=== PATIENT | male | born 1950 | race Caucasian/White ===

== ENCOUNTER 2018-12-22 06:18 | Inpatient (IN) ==
--- NOTE | 2018-12-16 11:31 | Anesthesiology Consultation ---
Date of Service December 16, 2018 Assessment & Plan (1) Encounter for pre-operative examination: Nephro: 11/25/18: CKD likely due to chronic NSAID use, HTN, diabetes. Recent creatinine stable in the low 2's. Creatinine "improving" s/p NSAID discontinuation. "Based on Yu perioperative cardiac risk calculator, patient has perioperatively cardiac risk of 0.05% which is low. Patient can proceed with the knee replacement." Chart Review Chart Review: Acceptable Risk for Surgery (pending updated preop EKG) and Patient NOT seen in Pre Admission Testing History Surgery Operation Date: 12/22/18 10:40 Proposed Procedures p Left Knee Uni Compartment Versus - Willard Allen MD s Total Knee Replacement - Willard Allen MD Height/Weight Height: 5 ft 8 in Weight: 108.862 kg Allergies Allergy/AdvReac Type Severity Reaction Status Date / Time No Known Allergies Allergy Unknown Verified 12/14/18 15:30 Medications Home Medications Medication Instructions Recorded Confirmed Last Taken amoxicillin 2,000 mg PO UD PRN 09/15/18 12/14/18 Unknown atorvastatin 20 mg PO QAM 09/15/18 12/14/18 Unknown levothyroxine 175 mcg PO QAM 09/15/18 12/14/18 Unknown triamterene-hydrochlorothiazid 1 tab PO QAM 09/15/18 12/14/18 Unknown amlodipine 10 mg PO QAM 12/14/18 12/14/18 Unknown dulaglutide [Trulicity] 1.5 mg SUBCUT WK 12/14/18 12/14/18 Unknown metoprolol succinate 25 mg PO QAM 12/14/18 12/14/18 Unknown Past Medical History Medical History CKD (chronic kidney disease) creatinine stable in the low 2's (improving s/p NSAID discontinuation); nephro monitoring Diabetes mellitus, type 2 Hyperlipidemia Hypertension Hypothyroidism Osteoarthritis Pulmonary nodules "benign" Past Family History Family History Father Family history of diabetes mellitus Past Surgical History Surgical History History of cardiac cath 2011= NO STENTS History of colonoscopy History of esophagogastroduodenoscopy (EGD) History of tonsillectomy History of total knee replacement RIGHT History of wisdom tooth extraction Social History Smoking Status: Former smoker tobacco type: cigarettes Smoking cigarettes per day: QUIT 40+ YEARS AGO Do You Dip or Chew Tobacco: Yes Smoking End Date: 1971 Hx Alcohol Use: No Hx Substance Use: No substance use type: does not use Testing Laboratory Results 12/01/18 WBC 6.14 H/H 13.4/40.9 PLATELETS 220 SODIUM 136 POTASSIUM 3.8 CHLORIDE 104 CO2 30 BUN 37 CREATININE 2.22 GLUCOSE 130 PT 10.3 PTT 27.9 INR 1.0 Electrocardiogram Date: 12/12/17 SR with PACs at 75bpm. Cannot rule out anterior infarct. *Baseline artifact* *Subsequent DSE done 12/22/17* Stress Test Date: 12/22/17 Type: exercise DSE "normal" without inducible ischemia. 109% MPHR. No significant arrhythmias. LVEF 69%. Mild TR. Frequent PVC's. HR response to stress abnormal. + KIANA. Mildly increased cLV wall thickness. Other Testing Chest CT: 11/13/18: stable tiny pulmonary nodules (stable since 2016) and "therefore benign." No further follow-up is required per report.
--- NOTE | 2018-12-19 13:30 | History and Physical Report ---
DATE OF ADMISSION: 12/22/2018 CHIEF COMPLAINT: Left knee pain and discomfort. HISTORY OF PRESENT ILLNESS: The patient is a 68-year-old gentleman well known to me from previous right knee replacement done back in 2007. Over the past year or so, he has developed increased pain and discomfort in the medial side of his left knee. He has been through extensive conservative treatment including medicines and injections, which have helped him temporarily. He has taken some chance that his creatinine is elevated and he has had to stop. Symptoms localized in the medial side of his knee. The more he walks, the more it hurts. He has pain going up and down steps. He has nighttime pain. Very happy with his right knee and he would like to have his left knee replaced. PAST MEDICAL HISTORY: 1. Hypertension. 2. Elevated cholesterol. 3. Hypothyroidism. 4. Low back pain. 5. Obesity, BMI 36.5. 6. BPH. 7. Stage III kidney disease. PAST SURGICAL HISTORY: Includes: 1. Right knee surgery/replacement done 06/26/2007. 2. T and A. ALLERGIES: POLLEN. CURRENT MEDICATIONS: 1. Amlodipine 10 mg a day. 2. Atorvastatin 20 mg a day. 3. Trulicity 1.5 mg subcutaneously a week. 4. Levothyroxine 175 mcg a day. 5. Metoprolol 25 mg a day. 6. Unspecified med 1 tablet once a day. SOCIAL HISTORY: A 68-year-old gentleman. He is from [place]. Does not smoke. FAMILY HISTORY: Noncontributory. REVIEW OF HISTORY: Negative for diabetes, neurologic problem, vascular problem, bleeding disorders. No chest pain or shortness of breath. No history of DVT or PE. He has recently been diagnosed with stage III kidney disease. PHYSICAL EXAMINATION: GENERAL: Shows a pleasant, middle-aged male. Looks to be in pretty good health. HEENT: Benign. NECK: Supple, no lymphadenopathy. LUNGS: Clear to auscultation. HEART: Regular rate and rhythm. ABDOMEN: Soft, nontender, nondistended. EXTREMITIES: Grossly neurovascularly intact except as follows: Examination of the left knee reveals patient walks independently. He has got slight varus alignment to his knee. He is tender over the medial joint lines. Small knee effusion. Range of motion 0-125. No instability. ACL clinically appears intact. No pain with hip motion. X-RAYS: X-rays of the left knee reviewed. Shows advanced medial compartment arthritis. He has got near complete loss of medial joint space. A lateral compartment was pretty well preserved. ASSESSMENT: A 68-year-old gentleman now 11+ years out from a right knee replacement with a left medial side knee pain and advanced medial compartment arthritis. He has failed conservative treatment and would like to proceed with definitive/surgical treatment. PLAN: We talked about treatment options. I do think he is a pretty good candidate for partial knee replacement considering his arthritic pattern and his symptoms. We are going to proceed with partial knee replacement. If we get in there, it is too bad, we will do a full knee replacement. The risks and benefits of this procedure were explained to the patient including but not limited to DVT, PE, , infection, neurological injury, vascular injury, bleeding problem, pain, limited range of motion, stiffness, failure to relief symptoms, incomplete relief of symptoms, need for further surgery in future, fracture, leg length inequality, nerve palsy, persistent pain, dislocation, need for blood transfusion, etc. The patient understands and desires to proceed. Informed consent was obtained. He was seen by his trimmer tailer and cleared for surgery. We are going to limit his NSAIDs due to his kidney issue. He should be able to be discharged home with some form of outpatient therapy. GRACIELA
[~2018-12-22 06:18] MED LIST: ACETAMINOPHEN 500 MG TAB PO SCH; BUPIVACAINE LIPOSOME/PF 266 MG, BUPIVACAINE/EPINEPHRINE 50 ML, SODIUM CHLORIDE 0.9% 30 ... INFIL SCH; CEFAZOLIN 2000MG 2,000 MG/15 ML SYR IV SCH; FAMOTIDINE 20 MG TAB PO SCH; GABAPENTIN 300 MG CAP PO SCH; LR 500ML BOLUS, THEN 15ML/HR IV SCH; LR 60ML/HR IV SCH; METOCLOPRAMIDE HCL 10 MG TABLET PO SCH; SCOPOLAMINE 1.5 MG TDSY TD SCH; SODIUM CHLORIDE 0.9% 1000ML IV SCH
[2018-12-22] MEDS ORDERED: TRANEXAMIC ACID 1,000 MG **IV Intra-op IV SCH (06:30)
[2018-12-22] MEDS ORDERED: BUPIVACAINE 0.5 % 5 MG/1 ML PF 10ML VIAL ONE (06:34)
[2018-12-22] MEDS ORDERED: BUPIVACAINE 0.25% 30 ML VIAL ONE ×2 (06:35→08:50)
--- NOTE | 2018-12-22 06:53 | History & Physical Bridge Note ---
Date of Service December 22, 2018 History & Physical Bridge Note I have examined the patient, reviewed the History & Physical and in the interval since the performance of the History & Physical I have noted the following changes of clinical significance: no changes noted
[2018-12-22] MEDS ORDERED: LIDOCAINE HCL 2% 2 ML VIAL/AMP(20MG/ML) INFIL ONE (07:26)
[2018-12-22] MEDS ORDERED: PROPOFOL IV EMULSION 10 MG/ML 20 ML VIAL IV ONE (07:26)
[2018-12-22] MEDS ORDERED: fentaNYL citrate 100 MCG/2 ML VIAL ONE (07:26)
[2018-12-22] MEDS ORDERED: MIDAZOLAM HCL 1 MG/ML 2ML VIAL ONE ×2 (07:27→08:53)
[2018-12-22] MEDS ORDERED: SODIUM CHLORIDE 0.9% PF 50 ML VIAL ONE (08:49)
[2018-12-22] MEDS ORDERED: BUPIVACAINE LIPOSOME 1.3% 266 MG/20 ML VIAL ONE (08:49)
[2018-12-22] MEDS ORDERED: BACITRACIN INJ 50,000 UNIT VIAL ONE (08:50)
[2018-12-22] MEDS ORDERED: EPINEPHrine INJ 1 MG/ML AMP ONE (08:51)
[2018-12-22] MEDS ORDERED: ONDANSETRON INJ 2 MG/ML 2 ML VIAL IV PRN ×2 (08:55→11:40)
[2018-12-22] MEDS ORDERED: fentaNYL citrate 100 MCG/2 ML VIAL IV PRN (08:55)
[2018-12-22] MEDS ORDERED: ATROPINE SULFATE 0.1 MG/ML 10ML SYR IV PRN (08:55)
[2018-12-22] MEDS ORDERED: ePHEDrine sulfate 50 MG/ML AMP IV PRN (08:55)
--- NOTE | 2018-12-22 10:35 | Post Operative Brief Note ---
PG Immediate Post Op with CF Date of Surgery December 22, 2018 Pre & Post Diagnosis Operation Date: 12/22/18 08:50 Pre-Op Diagnosis: Left Knee Advanced Medial Compartment Arthritis Post-Op Diagnosis: Left Knee Tricompartment Degenerative Joint Disease Procedure Operation Date: 12/22/18 08:50 Actual Procedures p Left Knee Total Arthroplasty - Willard Allen MD Surgeon Willard Allen MD Medical And Scientific Illustrator Dave, PAC Estimated Blood Loss 50 Findings Consistent with Post-Op Diagnosis Fluids 700 cc Specimens Specimen Description: A. Left Knee Bone and Tissue Drains Zapata Catheter (16 [place]uran Zapata catheter inserted by Dia Morales RN without difficulty. Clear yellow urine obtained, Anesthesia to monitor) Anesthesia Type Spinal MAC Complications none Disposition Accompanied Patient To Recovery: No Disposition: Recovery Room
--- NOTE | 2018-12-22 10:57 | XRay Report ---
XR knee LT 2V routine CLINICAL HISTORY: Postoperative evaluation. COMPARISON: Left knee radiographs September 10, 2018. FINDINGS: Alignment of the total left knee arthroplasty is anatomic. There is no fracture or unexpec mercy radiopaque foreign body. There are skin kecia. IMPRESSION: Expected findings following total left knee arthroplasty. Electronically signed by: Meng Pickens M.D. 12/22/2018 10:56 AM
--- NOTE | 2018-12-22 11:03 | Operative Report ---
DATE OF OPERATION: 12/22/2018 SURGEON: Willard Allen MD WIRE THREADER: CHIDI Flores PREOPERATIVE DIAGNOSIS: Left knee medial compartment degenerative joint disease. POSTOPERATIVE DIAGNOSES: Left knee tricompartment degenerative joint disease. PROCEDURE PERFORMED: Left cemented posterior stabilized total knee arthroplasty. COMPLICATIONS: None. ESTIMATED BLOOD LOSS: 50 mL. FLUID REPLACEMENT: 1700 mL crystalloid fluid replacement. TOURNIQUET TIME: 65 minutes at 300 mmHg. ANESTHESIA: Spinal with adductor canal block. DRAINS: None. SPECIMENS: Left knee sent for pathology. OPERATIVE INDICATIONS: The patient is a 68-year-old gentleman who is well known to me from previous right knee replacement done a little over 11 years ago. His right knee has done well. Over the past several years, he has developed increased pain and discomfort in his left knee. He has been through extensive conservative treatment including various medicines as well as injections. Unfortunately, with his medicine intake, he started to damage his kidneys and had to stop all NSAIDs. His pain has progressed. X-rays revealed medial compartment arthritis and the plan was to proceed with partial knee replacement. Symptoms were mostly on the medial side. OPERATIVE FINDINGS: Operative findings revealed advanced left knee DJD. He did have grade 4 changes in the medial femoral condyle and medial tibial plateau. Not much of bony eburnation. He did have a varus aligned knee. He did have a focal area of grade 4 changes in the central aspect of the lateral femoral condyle about the size of a dime and he has some grade 3 changes of patellofemoral joint. In light of these findings, I proceeded with a left knee replacement. OPERATIVE PROCEDURE: The patient was taken to the operating room, identified and placed on the operating table in supine position. All contact areas were appropriately padded. IV antibiotics were provided by anesthesia team. A spinal anesthetic and adductor canal block had been provided in the holding area. Zapata catheter was placed in sterile fashion. Left thigh tourniquet was then placed and left lower extremity was then prepped and draped in usual sterile fashion. Left leg was elevated and exsanguinated with an Esmarch and tourniquet was placed at 300 mmHg. An anterior approach to the left knee was then performed through a longitudinal incision beginning at the superior pole of the patella and extending just medial to the tibial tubercle. Sharp dissection was carried through subcutaneous tissue down to the level of the extensor mechanism. Medial parapatellar arthrotomy incision was made. I resected the fat pad. Some slight subperiosteal dissection was carried out medially. I then examined the lateral compartment and there was a focal area of grade 4 change of full thickness cartilage change in the central aspect of the lateral femoral condyle about the size of a dime. In light of this, I elected to proceed with total knee replacement. The total knee equipment was opened up. The knee incision was then extended up over the quad. The medial parapatellar arthrotomy incision was extended proximally. A more extensive subperiosteal dissection was carried out medially. Lateral patellofemoral ligament was released. The patella was subluxated laterally and the knee was flexed. The osteophytes were taken off the distal femur. The ACL and PCL were then released from distal femur and the tibia subluxated anteriorly. The external tibial alignment jig was then placed in the anterior face of the tibia and adjusted 14 mm medially. Proximal tibial cut was made to remove about a millimeter or 2 of bone from the most deficient aspect of the medial tibial plateau. Tibia was then sized to a size 75. Attention was then drawn to the femur. The distal femur was entered with a sharp drill bit. Intramedullary canal was suctioned. A left 6-degree valgus cutting guide was placed. Distal femoral cutting block was pinned in place. Distal femoral cut was made to take an additional 3 mm of bone off the distal femur. Femur was then sized to a size 67.5. We did downsize this about half a size. The AP cutting block was pinned parallel to the epicondylar axis, which was 5 degrees of external rotation. The anterior cut, anterior chamfer cut, posterior cut, posterior chamfer cuts were made. Box cutting guide was placed and adjusted slightly lateral and the box cut was made. The knee was flexed. The remnants of the medial and lateral menisci were excised. The osteophytes were taken off the posterior aspect of the femur. A trial femoral component was placed. Tibial tray was pinned in maximum external rotation and the drill and stem punch were used to create defect in proximal tibia for the tibial tray. The knee was then trialed and the 10 mm insert fit most appropriately. Attention was then drawn to the patella. The patella thickness measured 23 mm in thickness, it was cut down to 14. It was sized to a size 31 patella. Lug holes were drilled for 31 patella. Lateral osteophyte was removed. Patella button was placed. Knee was taken through range of motion and the patella tracked nicely with no thumbs test. Attention was then drawn toward placement of permanent components. All trial components were removed. A bone plug was placed in the distal femur to limit blood loss. A double batch of Palacos G cement was mixed. A Biomet Vanguard size 67.5 left posterior stabilized femoral component, size 75 tibial tray, 10 mm posterior stabilized polyethylene insert, and a 31 x 8 all poly patella then cemented in place. Knee was brought down into full extension until cement hardened. A final cement check was then performed. Pericapsular tissues were injected with a total of 100 mL of combination of 20 mL Exparel, 30 mL of normal saline, 50 mL of 0.25% Marcaine with epinephrine. The patient did receive 1 gram of tranexamic acid. The tourniquet was then let down for final tourniquet time of 65 minutes. Hemostasis was assured using electrocautery. Extensor mechanism was then closed with combination of #1 PDS suture and #1 Vicryl suture in a [id number] fashion. Extensor mechanism was checked and found to be intact. The subcutaneous tissue was then closed with #2 Dexon suture in a buried interrupted fashion. Skin was closed with skin kecia. Leg was then cleaned, dried and a sterile dressing of Xeroform, 4 x 4, sterile cast padding and Nicolás bandage were applied. The patient then transferred to the recovery room in stable condition. The patient tolerated the procedure well with no complications. All needle and sponge counts were correct at the end of the operation. I attest to the content of the Intraoperative Record and any orders documented therein. Any exception s are noted below.
--- NOTE | 2018-12-22 11:20 | Anesthesiology Progress Note ---
Date of Service December 22, 2018 Anesthesia Post Procedure Vital Signs Vital Signs: Temp Pulse Pulse Resp BP Pulse Ox 12/22/18 11:10 36.4 C L 57 L 14 114/70 98 12/22/18 11:00 58 L 19 105/64 98 12/22/18 10:50 63 15 114/68 98 12/22/18 10:41 36.4 C L 63 15 112/67 97 12/22/18 07:13 36.8 C 67 20 154/95 H 94 Transfer of Care Handoff Completed per policy Notes Mental Status: alert / awake / arousable and participated in evaluation Nausea / Vomiting: adequately controlled Pain: adequately controlled Airway Patency, RR, SpO2: stable & adequate BP & HR: stable & adequate Hydration State: stable & adequate Neuraxial Anesthesia: was administered and sensory block is resolving Anesthetic Complications: no major complications apparent and Pt Satisfied with anesthetic care
[2018-12-22] MEDS ORDERED: HYDROmorphone INJ 0.5 MG/0.5 ML SYR IV PRN (11:40)
[2018-12-22] MEDS ORDERED: NO NSAIDS SCH (11:40)
[2018-12-22] MEDS ORDERED: MAGNESIUM HYDROXIDE SUSP 30 ML UDC PO PRN (11:40)
[2018-12-22] MEDS ORDERED: METOCLOPRAMIDE HCL INJ 5 MG/ML 2 ML VIAL IV PRN (11:40)
[2018-12-22] MEDS ORDERED: NALOXONE HCL 0.4 MG/1 ML VIAL/CARP IV PRN (11:40)
[2018-12-22] MEDS ORDERED: TAMSULOSIN HCL 0.4 MG CAP PO PRN (11:40)
[2018-12-22] MEDS ORDERED: BISACODYL 10 MG SUPP PR PRN (11:40)
[2018-12-22] MEDS ORDERED: ALUMINUM/MAGNESIUM SUSP 30 ML UDC PO PRN (11:40)
[2018-12-22] MEDS ORDERED: OXYCODONE HCL IR 5 MG TAB (IMMEDIATE RELEASE) ONE (12:20)
[2018-12-22] MEDS: OXYCODONE HCL IR 5 MG TAB (IMMEDIATE RELEASE) PO PRN ×3 (12:24→21:50)
[2018-12-22] MEDS ORDERED: CARBOHYDRATES FOR HYPOGLYCEMIA PO PRN (15:24)
[2018-12-22] MEDS ORDERED: GLUCOSE 40% GEL 15 GM TUBE PO PRN (15:24)
[2018-12-22] MEDS ORDERED: DEXTROSE 50% 50 ML SYRINGE IV PRN (15:24)
[2018-12-22] MEDS ORDERED: GLUCOSE 10 TABS/TUBE PO PRN (15:24)
[2018-12-22] MEDS ORDERED: GLUCAGON FOR INJ 1 MG VIAL SQ PRN (15:24)
[2018-12-22] MEDS ORDERED: PHARMACY GLYCEMIC MGMT CONSULT PRN (15:28)
[2018-12-22] MEDS: ACETAMINOPHEN 500 MG TAB PO SCH ×2 (15:29→21:50)
[2018-12-22] MEDS: CHECK SCOPOLAMINE PATCH PLACEMENT SCH (15:30)
[2018-12-22] MEDS: SODIUM CHLORIDE 0.9% 1000ML 1,000 ML IV SCH (15:31)
[2018-12-22] MEDS: [UNRECOGNIZED DRUG - OTHER] SCH (15:46)
[2018-12-22] MEDS ORDERED: TRANEXAMIC ACID 1,000 MG in 0.9 % SODIUM CHLORIDE 100 ML IV SCH (16:37)
[2018-12-22] MEDS: ASCORBIC ACID 500 MG TAB PO SCH (17:14)
[2018-12-22] MEDS: CEFAZOLIN 2000MG 2,000 MG/15 ML SYR IV SCH (17:14)
[2018-12-22] MEDS: FERROUS GLUCONATE 324 MG TAB PO SCH (17:15)
[2018-12-22] MEDS: INSULIN ASPART 100 UNITS/ML 3 ML PEN SC SCH ×2 (18:00→21:46)
[2018-12-22] MEDS ORDERED: INSULIN ASPART 100 UNITS/ML 3 ML PEN SC SCH (18:00)
[2018-12-22] MEDS: TAPENTADOL HCL ER 50 MG TABCR PO SCH (20:10)
[2018-12-22] MEDS: SENNA 8.6 MG TAB PO SCH (20:11)
[2018-12-22] MEDS: DOCUSATE SODIUM 100 MG CAP PO SCH (20:11)
[2018-12-22] MEDS: ASPIRIN 81 MG ECTAB PO SCH (20:12)
[2018-12-23] MEDS: CHECK SCOPOLAMINE PATCH PLACEMENT SCH (00:01)
[2018-12-23] MEDS: CEFAZOLIN 2000MG 2,000 MG/15 ML SYR IV SCH (00:01)
[2018-12-23] MEDS: [UNRECOGNIZED DRUG - OTHER] SCH ×4 (00:30→23:05)
[2018-12-23] MEDS: SODIUM CHLORIDE 0.9% 1000ML 1,000 ML IV SCH (00:55)
[2018-12-23] MEDS: LEVOTHYROXINE SODIUM 175 MCG TABLET PO SCH (05:34)
[2018-12-23] MEDS: ACETAMINOPHEN 500 MG TAB PO SCH ×3 (05:34→21:11)
[2018-12-23 06:20] LABS: Hematocrit (blood only) 35.7 % (42-52); Hemoglobin 12.1 g/dL (14.0-18.0); Mean Corpuscular Hgb Conc 33.9 g/dL (32-36); Mean Corpuscular Volume 93.5 fL (80-100); Mean Platelet Volume 10.8 fL (7.4-10.4); Platelet Count 189 K/uL (130-400); RDW Standard Deviation 44.8 fL (36.4-46.3); Red Blood Count 3.82 M/uL (4.7-6.1); White Blood Count 9.25 K/uL (4.8-10.8)
[2018-12-23 06:36] LABS: Estimated Average Glucose 134 mg/dl; Hemoglobin A1C 6.3 % (4.5-5.6)
[2018-12-23 06:58] LABS: BUN Creatinine Ratio 15.9 (10-20); Calcium 8.2 mg/dl (8.5-10.1); Creatinine Clr Calc Pharmacy 43.6 ml/min; Est GFR (African American) 39.6; Est GFR (Non-African American) 34.2; Potassium 3.8 mmol/L (3.5-5.1)
--- NOTE | 2018-12-23 08:31 | Anesthesiology Progress Note ---
Date of Service December 23, 2018 Anesthesia Post Procedure Vital Signs Vital Signs: Temp Pulse Pulse Resp BP Pulse Ox 12/23/18 07:42 36.7 C 60 16 139/74 96 12/23/18 03:11 36.8 C 75 16 130/72 95 12/22/18 23:29 36.9 C 66 16 117/69 93 12/22/18 19:37 36.4 C L 64 17 136/77 96 12/22/18 14:36 36.5 C 58 L 16 109/64 97 12/22/18 13:30 36.7 C 59 L 16 110/69 94 12/22/18 12:42 73 16 119/74 97 12/22/18 12:11 36.7 C 59 L 16 122/68 100 12/22/18 11:40 36.7 C 60 16 111/73 98 12/22/18 11:20 60 20 116/73 96 12/22/18 11:10 36.4 C L 57 L 14 114/70 98 12/22/18 11:00 58 L 19 105/64 98 12/22/18 10:50 63 15 114/68 98 12/22/18 10:41 36.4 C L 63 15 112/67 97 Pain Intensity Left Knee: Pain Intensity: 4 Notes Mental Status: alert / awake / arousable and participated in evaluation Patient Amnestic to Procedure: Yes Nausea / Vomiting: adequately controlled Pain: adequately controlled Airway Patency, RR, SpO2: stable & adequate BP & HR: stable & adequate Hydration State: stable & adequate Neuraxial Anesthesia: was administered and sensory block resolved Anesthetic Complications: no major complications apparent and Pt Satisfied with anesthetic care
--- NOTE | 2018-12-23 08:34 | Progress Note ---
DATE: 12/23/2018 SUBJECTIVE: A 68-year-old gentleman postop day 1 from a left full knee replacement. He is doing well. He has had quite a bit of pain intermittently, but responded to the pain medicines and doing well this morning. No chest pain or shortness of breath. Not feeling dizzy or lightheaded. OBJECTIVE: VITAL SIGNS: Temperature 36.7. Vital signs stable. GENERAL: Physical examination shows a pleasant, middle-aged male. He is sitting up in bed and eating breakfast. Looks comfortable. EXTREMITIES: Examination of the left leg reveals the dressing to be clean, dry, and intact. He can dorsiflex and plantarflex his foot appropriately. He is neurologically intact. LABORATORY DATA: Hemoglobin 12.1. Hematocrit 35.7. Electrolytes are stable. Creatinine is actually improved from previously. ASSESSMENT: A 68-year-old gentleman with some underlying chronic renal insufficiency, postop day 1 from a left knee replacement, doing well. His pain is controlled. He is neurologically intact. Renal function is stable. PLAN: 1. DVT prophylaxis including thigh-high TEDs, SCDs, and aspirin twice a day for the next 4-6 weeks. 2. PT/OT. Weight bear as tolerated. Left total knee protocol. 3. Pain control, doing pretty well with current pain medicines. We will have to hold all NSAIDs due to his renal dysfunction. 4. Disposition: Plan to discharge to home with some home health once adequately recovered.
[2018-12-23] MEDS: INSULIN ASPART 100 UNITS/ML 3 ML PEN SC SCH ×4 (09:04→21:14)
[2018-12-23] MEDS: AMLODIPINE BESYLATE 5 MG TAB PO SCH (09:06)
[2018-12-23] MEDS: ATORVASTATIN 20 MG TAB PO SCH (09:06)
[2018-12-23] MEDS: MULTIVITAMIN TAB PO SCH (09:06)
[2018-12-23] MEDS: TAPENTADOL HCL ER 50 MG TABCR PO SCH ×2 (09:06→20:44)
[2018-12-23] MEDS: TRIAMTERENE/HCTZ 37.5/25MG TAB PO SCH (09:06)
[2018-12-23] MEDS: FERROUS GLUCONATE 324 MG TAB PO SCH ×2 (09:06→16:29)
[2018-12-23] MEDS: ASPIRIN 81 MG ECTAB PO SCH ×2 (09:06→20:44)
[2018-12-23] MEDS: ASCORBIC ACID 500 MG TAB PO SCH ×2 (09:06→16:29)
[2018-12-23] MEDS: DOCUSATE SODIUM 100 MG CAP PO SCH ×2 (09:06→20:44)
[2018-12-23] MEDS: METOPROLOL SUCC 25MG EXT REL TAB PO SCH (09:07)
[2018-12-23] MEDS: OXYCODONE HCL IR 5 MG TAB (IMMEDIATE RELEASE) PO PRN ×2 (09:15→14:24)
[2018-12-23] MEDS: SENNA 8.6 MG TAB PO SCH (20:44)
[2018-12-24] MEDS: ACETAMINOPHEN 500 MG TAB PO SCH (06:06)
[2018-12-24] MEDS: LEVOTHYROXINE SODIUM 175 MCG TABLET PO SCH (06:27)
[2018-12-24] MEDS: [UNRECOGNIZED DRUG - OTHER] SCH (07:36)
[2018-12-24] MEDS: MULTIVITAMIN TAB PO SCH (08:42)
[2018-12-24] MEDS: AMLODIPINE BESYLATE 5 MG TAB PO SCH (08:42)
[2018-12-24] MEDS: ASPIRIN 81 MG ECTAB PO SCH (08:42)
[2018-12-24] MEDS: TRIAMTERENE/HCTZ 37.5/25MG TAB PO SCH (08:42)
[2018-12-24] MEDS: FERROUS GLUCONATE 324 MG TAB PO SCH (08:42)
[2018-12-24] MEDS: ASCORBIC ACID 500 MG TAB PO SCH (08:42)
[2018-12-24] MEDS: ATORVASTATIN 20 MG TAB PO SCH (08:42)
[2018-12-24] MEDS: DOCUSATE SODIUM 100 MG CAP PO SCH (08:42)
[2018-12-24] MEDS: METOPROLOL SUCC 25MG EXT REL TAB PO SCH (08:44)
[2018-12-24] MEDS: INSULIN ASPART 100 UNITS/ML 3 ML PEN SC SCH (08:45)
[2018-12-24] MEDS: TAPENTADOL HCL ER 50 MG TABCR PO SCH (08:48)
--- NOTE | 2018-12-24 08:57 | Progress Note ---
DATE: 12/24/2018 SUBJECTIVE: A 68-year-old gentleman postop day 2 from a left knee replacement. He is doing well. Pain seems to be a bit better today. No chest pain or shortness of breath. Not feeling dizzy or lightheaded. Doing okay with pain meds. OBJECTIVE: VITAL SIGNS: Temperature 36.7. Vital signs stable. GENERAL: Physical examination shows a pleasant, middle-aged male. He is sitting up in bed, looks comfortable. EXTREMITIES: Examination of the left leg reveals incision to be clean, dry and intact. Really not much swelling. His calf is soft and supple. He can dorsiflex and plantarflex his foot appropriately. ASSESSMENT: A 68-year-old gentleman postop day 2 from left knee replacement, doing pretty well. Pain is controlled. He is neurologically intact. PLAN: 1. DVT prophylaxis including thigh-high TEDs, SCDs, and aspirin twice a day. 2. PT/OT. Weight bear as tolerated. Left total knee protocol. 3. Pain control, doing well with current pain regimen. 4. Disposition: Plan to discharge to home with some home health later today.
[2018-12-24] MEDS: OXYCODONE HCL IR 5 MG TAB (IMMEDIATE RELEASE) PO PRN (10:18)
--- NOTE | 2018-12-28 22:04 | Discharge Summary ---
ADMITTING PHYSICIAN AND SURGEON: Dr. Willard Allen ADMITTING DIAGNOSIS: Left knee medial compartment degenerative joint disease. PROCEDURE PERFORMED: Left total knee arthroplasty. SECONDARY DIAGNOSES: Hypertension, elevated cholesterol, hypothyroidism, low back pain, obesity, BPH, stage III kidney disease. CONSULTS: None obtained. HOSPITAL COURSE: The patient was admitted on 12/22/2018, underwent total knee arthroplasty, tolerated the procedure well. There were no complications. He was transferred to the PACU postoperatively and later to the orthopedic floor for further care. He was given Ancef for antibiotic prophylaxis, ANA MARIA stockings, SCDs and aspirin for DVT prophylaxis. Hemoglobin, hematocrit and vital signs were monitored during his hospital stay and remained stable, did not require any blood transfusions. There were no complications. On postoperative day 2, he was tolerating a diabetic diet. Pain was controlled with oral pain medicine. He was participating in physical therapy. Postop day #2, he was discharged home. He was given printed discharge instructions as well as new prescriptions for extra strength Tylenol, aspirin and oxycodone. Continue home medicines. Continue physical therapy, weightbearing as tolerated, ANA MARIA stockings. Follow up approximately 2 weeks postop or sooner if there are any problems or concerns.
== END 2018-12-24 11:35 | disposition home or self-care (01) | DRG 470 ==
LOC: ASU 06:18 → 3E 10:39

== ENCOUNTER 2021-08-29 05:04 | Observation (INO) ==
--- NOTE | 2021-08-01 13:15 | PAT Medication Instructions ---
Medication Instructions Date of Service August 01, 2021 Home Medications amoxicillin 500 mg capsule 2,000 mg PO UD PRN atorvastatin 20 mg tablet 20 mg PO QAM triamterene 75 mg-hydrochlorothiazide 50 mg tablet 1 tab PO QAM amlodipine 10 mg tablet 10 mg PO QAM Zinc 30 mg PO QAM dulaglutide 3 mg/0.5 mL subcutaneous pen injector (Trulicity) 3 mg SUBCUT WK empagliflozin 10 mg tablet (Jardiance) 10 mg PO QAM levothyroxine 150 mcg tablet 150 mcg PO QAM magnesium oxide-magnesium amino acid chelate 300 mg capsule (Magnesium (oxide/AA chelate)) 1 cap PO QAM Continue as directed amoxicillin 500 mg capsule 2,000 mg PO UD PRN(if needed) dulaglutide 3 mg/0.5 mL subcutaneous pen injector (Trulicity) 3 mg SUBCUT WK (not day of surgery) DO NOT take the morning of surgery triamterene 75 mg-hydrochlorothiazide 50 mg tablet 1 tab PO QAM Zinc 30 mg PO QAM empagliflozin 10 mg tablet (Jardiance) 10 mg PO QAM magnesium oxide-magnesium amino acid chelate 300 mg capsule (Magnesium (oxide/AA chelate)) 1 cap PO QAM Take morning of surgery With a small sip of water, OTHERWISE NOTHING TO EAT OR DRINK AFTER MIDNIGHT: atorvastatin 20 mg tablet 20 mg PO QAM amlodipine 10 mg tablet 10 mg PO QAM levothyroxine 150 mcg tablet 150 mcg PO QAM Other Notes If you have any questions please call us at [phone] or [phone] or [phone] or [phone]
--- NOTE | 2021-08-06 15:07 | Anesthesiology Consultation ---
Date of Service August 06, 2021 Assessment & Plan (1) Encounter for pre-operative examination: - check BSG am DOS. - elevated A1c 8.8%. Kavita at surgeon's office made aware. - Case discussed in detail with Dr. Joaquin including h/o pulmonary h ypertension, no recent echocardiogram. He advised patient is acceptable risk to proceed with surgery without additional evaluation or testing from his standpoint, to surgeon's discretion regarding elevated A1c. Kavita at surgeon's office confirmed he is staying overnight, is not outpatient joint. - PCP office visit 07/09/2021 [facility]: "...History of pe-stable. History of pulm [id number]-[id number] followed. History of diabetes...History of ckd-being followed. History of increased lipids...History of htn-on a medication. History of hyperparathyroidism-being followed. History of hypothyroidism..." 6 month follow-up advised. - nephrology office visit 06/06/2021 [facility]: "...hypertension, hyperlipidemia, hypothyroidism and CKD stage 3 with the previous baseline of 1.3 but for the past 2 months creatinine has been around 2.7-2.9. Renal ultrasound in September showed 11.9 cm right kidney and 12.1 cm left kidney with no hydronephrosis or kidney stones...He had a dobutamine stress test in December 2017 which was negative for ischemia and EF of 69%...chronic arthritis of the knees and was taking ibuprofen 6 tab daily. He was planned for left knee replacement but this was canceled after finding rise in creatinine...CKD stage 3 likely due to chronic NSAID use, hypertension and diabetes. Recent creatinine of 1.6 which is his baseline. Electrolytes are stable and no signs of volume overload...moderate risk for progression to ESRD. Main problem today's hyperglycemia with recent A1c of 9.9. Patient will benefit from an SGLT 2 inhibitor. Discussed case with [facility] pharmacy. Repeat BMP in 6 months with PCP...Blood pressure is controlled on current regimen. No changes today. He will continue monitor blood pressure at home. Renal osteodystrophy. Patient likely has a component of primary hyperparathyroidism. PTH is above target. Vitamin-D is acceptable. Calcium is at target. Patient knows to avoid calcium supplements. No other changes. Will repeat PTH and vitamin-D with the next blood test..." - discharge summary 03/04/2021-03/06/2021 S: "...worsening shortness of breath and hypoxia SPO2 84% on RA...placed on 3 L NC, SpO2 stable around 93-97%...sick for about 10 days with intermittent fever...productive cough, poor appetite, nausea, dyspnea...CT evidence of covid pneumonia...diarrhea with azithromycin...admitted for acute hypoxic respiratory failure, exertional hypoxia from covid 19 pneumonia...started him on supplemental oxygen, dexamethasone and remdesivir...VQ scan plus LE doppler to rule out PE/DVT. Corrected his low sodium...V/Q scan was showing possibility of PE and LE doppler showed B/L DVT...on heparin for during hospital stay...ambulatory pulse ox was showing decent saturation on RA...deemed stable for discharge..." - pulmonology office visit 04/20/2018 [facility]: "...remains fairly stable and continues to go about his usual activities at his own pace. He still has occasional cough but mostly unproductive...PULMONARY HYPERTENSION WHO CLASSIFICATION 1 (Patient with pulmonary hypertension but without resulting limitations of physical activity...Patient's prior CT scan of the chest showed evidence of small pulmonary nodular densities...follow-up and patient will be scheduled for repeat CT scan of the chest prior to next visit. Plan of care was discussed with the patient and he verbalized understanding...pulmonary hypertension: Patient is fairly stable. Decrease salt intake was encouraged." Pt advised to f/u with pulmonology office, per [facility] records he did not return as advised in 2020. - COVID screening: Per assessment on 08/06/2021: Travel screen negative, no known COVID-19 positive contacts or current COVID-19 related symptoms in past 2 weeks. Surgeon arranging preop COVID testing, scheduled 08/27/2021. Awaiting results. Chart Review Chart Review: Acceptable Risk for Surgery and Patient seen in Pre Admission Testing Teaching & Discussion Pre-Anesthesia Teaching/Discussion Notes: Instructed NPO after midnight before surgery, except medications with 15 cc of water. Medication instructions provided according to the PAT guidelines. History Surgery Operation Date: 08/29/21 12:45 Proposed Procedures p Left Total Hip Replacement - Willard Allen MD Height/Weight Height: 5 ft 8 in Weight: 110.2 kg Allergies Allergy/AdvReac Type Severity Reaction Status Date / Time No Known Allergies Allergy Unknown Verified 08/01/21 10:15 Medications Home Medications Medication Instructions Recorded Confirmed Last Taken amoxicillin 500 mg capsule 2,000 mg PO UD PRN 09/15/18 08/01/21 1 Year Ago ~12/22/17 atorvastatin 20 mg tablet 20 mg PO QAM 09/15/18 08/01/21 12/21/18 08:00 triamterene 75 1 tab PO QAM 09/15/18 08/01/21 12/21/18 08:00 mg-hydrochlorothiazide 50 mg tablet amlodipine 10 mg tablet 10 mg PO QAM 12/14/18 08/01/21 12/22/18 04:30 Zinc 30 mg PO QAM 08/01/21 08/01/21 Unknown dulaglutide 3 mg/0.5 mL 3 mg SUBCUT WK 08/01/21 08/01/21 Unknown subcutaneous pen injector (Trulicity) empagliflozin 10 mg tablet 10 mg PO QAM 08/01/21 08/01/21 Unknown (Jardiance) levothyroxine 150 mcg tablet 150 mcg PO QAM 08/01/21 08/01/21 Unknown magnesium oxide-magnesium amino 1 cap PO QAM 08/01/21 08/01/21 Unknown acid chelate 300 mg capsule (Magnesium (oxide/AA chelate)) Past Medical History Medical History (Updated 08/06/21 @ 16:42 by Valeria Brandt PA-C) Arthritis of left hip Arthritis of spine CKD (chronic kidney disease) Following with nephro Creatinine 1.8 on 07/03/21 labs Diabetes mellitus, type 2 NIDDM DVT (deep venous thrombosis) LE DVTs (03/2021) in setting of Covid infection > was on Eliquis until 05/2021 History of COVID-19 Dx 03/2021 > Admitted @ [facility] d/t low oxygen level (states was 82% on RA) had to be on 2L of oxygen for 3 days, states he had blood clots in his legs and was on Eliquis until 05/2021 > symptoms have all resolved Hyperlipidemia Hyperparathyroidism Hypertension 130s/80s average readings Hypothyroidism Lumbar spondylosis Osteoarthritis Pulmonary hypertension Pulmonary nodules "benign" Patient denies h/o stroke, seizures, heart attack, heart failure, or blood transfusions. Exercise / Class Metabolic Activity III < 4 Walking/Shop/Light housework (denies CP or SOB with usual activities) Past Family History Family History Father Family history of diabetes mellitus Other No family history of adverse response to anesthesia Past Surgical History Surgical History History of cardiac cath 2011= NO STENTS History of colonoscopy History of esophagogastroduodenoscopy (EGD) History of tonsillectomy History of total knee replacement RIGHT History of total left knee replacement (TKR) Left TKA (12/22/18): SAB at L3 x1 attempt + PNB at [facility] History of wisdom tooth extraction Past Anesthesia History No Hx of Anesthesia Complications and No Family Hx of Anesthesia Complications History of PONV No Hx of PONV and No Hx of Motion Sickness Social History Smoking Status: Former smoker tobacco type: cigarettes Do You Dip or Chew Tobacco: No Smoking End Date: quit 50yrs ago Hx Alcohol Use: No Hx Substance Use: No substance use type: does not use Review of Systems Patient denies chest pain, shortness of breath, dyspnea on exertion, snoring, witnessed apneas, reflux, fever, chills, cough, wheezing, or palpitations. Physical Exam Vital Signs Vitals BP 113/76 P 74 TEMP 98.8 SP02 96% on RA RESP 17 Physical Full cervical extension range of motion without pain Full TMJ range of motion TMD 3.5 finger breaths Mallampati Score 3 Dentition: intact, several missing teeth-chipped right upper front; denies loose teeth, caps/crowns, implants or bridges Lungs: normal respiratory effort. Clear throughout to auscultation, no adventitious breath sounds Cardiac: regular rate and rhythm, no murmurs noted Carotid arteries: negative bruit bilat Lab Results Anesthesia Preop Results Results Anesthesia Widget: WBC 7.55 K/uL (4.8-10.8) 08/06/21 Hgb 17.3 g/dL (14.0-18.0) 08/06/21 Hct 52.2 % (42-52) H 08/06/21 Plt 203 K/uL (130-400) 08/06/21 Na 140 mmol/L (136-145) 08/06/21 K 4.1 mmol/L (3.5-5.1) 08/06/21 Cl 102 mmol/L (98-107) 08/06/21 CO2 28 mmol/L (21-32) 08/06/21 BUN 27 mg/dl (6-23) H 08/06/21 Creat 1.66 mg/dl (0.6-1.4) H 08/06/21 Glucose Level 123 mg/dl (70-99(Fasting)) H 08/06/21 PT 10.5 Seconds (9.0-12.0) 08/06/21 PTT 28.5 Seconds (21.0-31.0) 08/06/21 INR 1.0 (0.9-1.1) 08/06/21 HA1c 8.8 % (4.5-5.6) H 08/06/21 Blood Type A Positive 08/06/21 Antibody Screen NEGATIVE 08/06/21 Testing Electrocardiogram Date: 03/02/21 NSR, rate 83 bpm Rightward axis Chest X-Ray Date: 08/06/21 FINDINGS: No lines and tubes are seen. The cardiomediastinal silhouette is normal. The lungs are clear. No evidence of pleural effusion or pneumothorax. IMPRESSION: No acute chest disease. Stress Test Date: 12/22/17 Normal without resting LV wall motion or inducible ischemia MPHR 109% No significant arrhythmias EF 69% Moderate cLVH Mild tricuspid regurgitation Other Testing Pulmonary perfusion 03/05/2021 IMPRESSION 1. Mild heterogeneity of the right upper lobe likely represents airspace disease due to COVID. 2. Perfusion defect in the anterior left upper lobe without distinct matching defect on the recent chest x-ray or CT. This is concerning for PE, however, exam is limited in specificity given the underlying multifocal pneumonia due to patient's COVID pneumonia. Lower extremity venous duplex 03/05/2021 On duplex examination the right common femoral vein, the sapheno-femoral junction and the femoral vein in the thigh are all free of internal echoes and demonstrate normal transducer compressibility during rausch scale imaging and normal respiratory and augmentation response during Doppler interrogation. The posterior tibial veins and peroneal veins demonstrate no evidence of thrombosis. Right popliteal vein has phasic flow, is non-compressible and echogenic. On duplex examination the left common femoral vein, the sapheno-femoral junction, the femoral vein in the thigh are all free of internal echoes and demonstrate normal transducer compressibility during rausch scale imaging and normal respiratory and augmentation response during Doppler interrogation. The posterior tibial veins and peroneal veins demonstrate no evidence of thrombosis. Left popliteal vein has phasic flow, is non-compressible and echogenic. CONCLUSIONS: Acute deep venous thrombosis in the right and left lower extremity in the segments as noted above
[2021-08-29] MEDS ORDERED: TRANEXAMIC ACID 1,000 MG **IV Pre-op IV SCH (06:00)
[2021-08-29] MEDS ORDERED: LR 500ML BOLUS, THEN 15ML/HR IV SCH (06:00)
[2021-08-29] MEDS ORDERED: LR 60ML/HR IV SCH (06:00)
[2021-08-29] MEDS ORDERED: FAMOTIDINE 20 MG TAB PO SCH (06:00)
[2021-08-29] MEDS ORDERED: ACETAMINOPHEN 500 MG TAB PO SCH (06:00)
[2021-08-29] MEDS ORDERED: METOCLOPRAMIDE HCL 10 MG TABLET PO SCH (06:00)
[2021-08-29] MEDS ORDERED: GABAPENTIN 300 MG CAP PO SCH (06:00)
[2021-08-29] MEDS ORDERED: BUPIVACAINE 0.5 % 5 MG/1 ML MPF 30ML VIAL ONE ×2 (06:18→06:35)
[2021-08-29] MEDS ORDERED: PROPOFOL IV EMULSION 10 MG/ML 20 ML VIAL IV ONE ×3 (06:21→07:42)
[2021-08-29] MEDS ORDERED: MIDAZOLAM HCL 1 MG/ML 2ML VIAL ONE (06:21)
[2021-08-29] MEDS ORDERED: MoRPHine SULFATE PF 1 MG/ML 10 ML AMP/VIAL ONE (06:22)
[2021-08-29] MEDS ORDERED: EPINEPHrine INJ 1 MG/ML AMP ONE (06:35)
[2021-08-29] MEDS ORDERED: NALBUPHINE HCL INJ 10 MG/ML AMP IV PRN (06:44)
[2021-08-29] MEDS ORDERED: LACTATED RINGER'S 500 ML IV PRN (06:44)
[2021-08-29] MEDS ORDERED: diphenhydrAMINE 50 MG/ML VIAL IV PRN (06:44)
[2021-08-29] MEDS ORDERED: NALOXONE HCL 0.08 MG in SYRINGE 1.8 ML IV PRN (06:44)
[2021-08-29] MEDS ORDERED: NALOXONE HCL 0.4 MG/1 ML VIAL/CARP IV PRN ×2 (06:44→09:45)
[2021-08-29] MEDS ORDERED: ONDANSETRON INJ 2 MG/ML 2 ML VIAL IV PRN (06:44)
[2021-08-29] MEDS ORDERED: MoRPHine SULFATE PF 1 MG/ML 10 ML AMP/VIAL INT SPINAL ONE (06:44)
[2021-08-29] MEDS ORDERED: NALOXONE HCL 1 MG in SODIUM CHLORIDE 0.9% 1000ML 1,000 ML IV PRN (06:44)
[2021-08-29] MEDS ORDERED: ePHEDrine sulfate 50 MG/ML AMP IV PRN (06:44)
[2021-08-29] MEDS ORDERED: MoRPHine SULFATE 2 MG/ML CARP IV PRN (06:44)
[2021-08-29] MEDS ORDERED: PROMETHAZINE HCL 12.5 MG in SODIUM CHLORIDE 0.9% 50 ML IV PRN (06:44)
[2021-08-29] MEDS ORDERED: DC INTRASPINAL MORPHINE SCH (06:45)
[2021-08-29] MEDS ORDERED: NO NARCOTICS OR SEDATIVES SCH (06:45)
[2021-08-29] MEDS ORDERED: SODIUM CHLORIDE 0.9% 1000ML 1,000 ML IV SCH ×2 (06:45→09:45)
--- NOTE | 2021-08-29 06:50 | History & Physical Bridge Note ---
Date of Service August 29, 2021 History & Physical Bridge Note I have examined the patient, reviewed the History & Physical and in the interval since the performance of the History & Physical I have noted the following changes of clinical significance: no changes noted
[2021-08-29] MEDS: ceFAZolin 2000MG 2,000 MG/15 ML SYR IV SCH ×4 (06:57→22:14)
[2021-08-29] MEDS ORDERED: PHENYLEPHRINE HCL 10 MG/ML VIAL ONE (07:26)
[2021-08-29] MEDS ORDERED: ePHEDrine sulfate 50 MG/ML SYR ONE (07:46)
--- NOTE | 2021-08-29 08:36 | Operative Report ---
PG Post Operative Report Pre & Post Diagnosis Operation Date: 08/29/21 07:00 Pre-Op Diagnosis: Left Hip Advanced Degenerative Joint Disease Post-Op Diagnosis: Left Hip Advanced Degenerative Joint Disease I identified the patient and participated in the time-out.: Yes Procedure Operation Date: 08/29/21 07:00 Actual Procedures p Left Total Hip Arthroplasty--Uncemented(Left) - Willard Allen MD Surgeon Willard Allen MD Nuclear Medicine Physician Cong Acosta PA-C Estimated Blood Loss 200 Findings Consistent with Post-Op Diagnosis Operative findings advanced left hip DJD. He had a grade 4 [id number] disease the femoral head and acetabulum. Not a lot of osteophyte formation. Fairly stiff hip. Fairly muscular soft tissue envelope. Not much eburnation but full- thickness cartilage loss. Specimens Left femoral head sent for pathology. Anesthesia Type Spinal MAC Complications none Disposition Accompanied Patient To Recovery: Yes Indications Patient is a 70-year-old gentleman with a gradual progressive history of increasing hip pain discomfort. Been to extensive conservative treatment she became less successful over time. X-ray showed hip arthritis with progression of arthritis over the past year. He elected proceed with total hip arthroplasty. Description of Procedure Operative implants consist of: 1. Biomet G7 size 58 mm acetabular shell. 2. 6.5 cancellous acetabular screws 1 of 35 mm length and 1 of 30 mm length. 3. Highly cross-linked polyethylene liner with a 58 mm outer diam and 40 mm inner diameter. 4. Durant hole eliminator. 5. DePuy Corail size 10 KLA femoral stem. 6. +5/40 mm ceramic articular ball. The patient was taken the operating, identified, and placed on the operating table supine position protectors were properly padded. IV antibiotics by anesthesia team. A spinal anesthetic and been implemented holding area. Zapata catheter was placed in sterile fashion. The patient then placed in the right lateral decubitus position. An axillary roll was placed. A Stulberg hip positioner was used for positioning. Left hip and leg were then prepped and draped in usual sterile fashion. A posterolateral approach left hip was then performed through a curvilinear incision centered over the greater trochanter. Sharp dissection carried through subcutaneous tissue down to the IT band gluteal fascia the IT band gluteal fascia incised longitudinally in line with skin incision. The underlying greater bursa was excised. The piriformis and external rotators and posterior capsule were then released in the posterior aspect hip joint as a single layer. Great care was taken throughout the procedure protect the sciatic nerve at all times. The hip was internally rotated and dislocated. Femoral neck osteotomy cut was made with Final Cut about 12 mm above the lesser trochanter. Femoral head was removed and sent to pathology. The femur was retracted anteriorly. Attention drawn the acetabulum. The acetabular labrum was excised. The pulmonary fat was excised. Sequential reaming the acetabular then performed beginning with a size 47 progressing up to 57. I did ream some with a 58 reamer and then placed a 58 mm cup in about 40 degrees lateral opening and 20 degrees of anteversion. It was fixed with two 6.5 cancellous acetabular screws. A trial liner was placed. Attention drawn the femur. The proximal femur was entered with a iWantoo cutter followed by canal finder. His bone was extremely strong the cancellous bone. I then broached begin the size 8 progressing up to a 10. We got excellent fit of the 10 and excellent stability even though there was still a significant cancellous envelope proximally. We elect to place this implant. I trialed the hip and the +5 articular ball recreated soft tissue tension, leg lengths equal, and excellent stability in full extension and external rotation and flexion to 90 degrees internal Tatian over [address] elect to place these implants. All trial implants were removed. An apex cable maintainer was placed. Highly cross- linked polyethylene liner was placed. A size 10 KLA femoral stem was impacted in position. A +5/40 mm ceramic articular ball was placed. Hip was located once again found to be stable. Attention drawn toward closing. The wound was irrigated scopes also pulsatile lavage solution. I did inject locally with 60 cc of half percent Marcaine with epinephrine. Posterior capsule and external rotators were then repaired through drill holes in the trope posterior trochanter with #2 Tycron suture. The IT band gluteal fascia then closed #1 PDS suture in a running fashion for subcutaneous tissue then closed with 2 layers the deep layer #1 Vicryl suture and subcutaneous tissue with 2 Dexon suture in a buried interrupted fashion. Skin was closed skin kecia. Legs then cleaned and dried a sterile dressing was Xeroform, 4 x 4's, sterile ABD pad and foam tape was applied. The patient then transferred to the recovery room in stable condition. The patient tolerated the procedure well and there were no complications. Cong Acosta, my physician salon assistant, was present for the entire procedure. His assistance was essential and required for appropriate patient positioning, prepping and draping, surgical exposure, performing the technical details of the operation, placement the implants, closure of the wound, and placement of the sterile bandage. I attest to the content of the Intraoperative Record and any orders documented therein. Any exceptions are noted below.
--- NOTE | 2021-08-29 08:58 | XRay Report ---
XR hip 1V LT w pelvis CLINICAL HISTORY: IN PACU - A/P PELVIS and LATERAL HIP . Status post hip replacement COMPARISON STUDY: No previous studies for comparison. TECHNIQUE: 2 left hip views FINDINGS: The patient is status post total hip replacement. The prosthetic components are in anatomic alignment with no acute abnormality seen. Skin kecia are seen from the recent procedure. IMPRESSION: 1. Status post total hip replacement ACT 112: Negative or not required by law. Electronically signed by: Rob Esquivel M.D. 08/29/2021 8:56 AM
[2021-08-29] MEDS ORDERED: CARBOHYDRATES FOR HYPOGLYCEMIA PO PRN (09:45)
[2021-08-29] MEDS ORDERED: NON-FORMULARY MEDICATION (Dulaglutide [Trulicity] 3 mg/0.5 mL Pen Injector) SQ SCH (09:45)
[2021-08-29] MEDS ORDERED: NON-FORMULARY MEDICATION (Empagliflozin [Jardiance] 10 mg Tablet) PO SCH (09:45)
[2021-08-29] MEDS ORDERED: ALUMINUM/MAGNESIUM SUSP 30 ML UDC PO PRN (09:45)
[2021-08-29] MEDS ORDERED: NON-FORMULARY MEDICATION (Magnesium Oxide-Mg Aa Chelate [Magnesium (Oxide/Aa Chelate)] 300 PO SCH (09:45)
[2021-08-29] MEDS ORDERED: GLUCOSE 40% GEL 15 GM TUBE PO PRN (09:45)
[2021-08-29] MEDS ORDERED: DEXTROSE 50% 50 ML SYRINGE IV PRN (09:45)
[2021-08-29] MEDS ORDERED: GLUCAGON FOR INJ 1 MG VIAL SQ PRN (09:45)
[2021-08-29] MEDS ORDERED: NON-FORMULARY MEDICATION (Zinc 30 MG) PO SCH (09:45)
[2021-08-29] MEDS ORDERED: GLUCOSE 10 TABS/TUBE PO PRN (09:45)
[2021-08-29] MEDS ORDERED: bisacodyL 10 MG SUPP PR PRN (09:45)
[2021-08-29] MEDS ORDERED: PHARMACY GLYCEMIC MGMT CONSULT PRN (09:45)
[2021-08-29] MEDS ORDERED: MAGNESIUM HYDROXIDE SUSP 30 ML UDC PO PRN (09:45)
[2021-08-29] MEDS: LEVOTHYROXINE SODIUM 150 MCG TABLET PO SCH (10:53)
[2021-08-29] MEDS: TAMSULOSIN HCL 0.4 MG CAP PO SCH (10:53)
[2021-08-29] MEDS: DOCUSATE SODIUM/SENNA 50/8.6MG TAB PO SCH (10:53)
[2021-08-29] MEDS: TRIAMTERENE/HCTZ 37.5/25MG TAB PO SCH (10:54)
[2021-08-29] MEDS: ATORVASTATIN 20 MG TAB PO SCH (10:54)
[2021-08-29] MEDS: DOCUSATE SODIUM 100 MG CAP PO SCH ×2 (10:54→21:05)
[2021-08-29] MEDS: MULTIVITAMIN TAB PO SCH (10:54)
--- NOTE | 2021-08-29 11:44 | Anesthesiology Progress Note ---
Date of Service August 29, 2021 Anesthesia Post Procedure Vital Signs Vital Signs: Temp Pulse Pulse Resp BP BP Pulse Ox 08/29/21 11:15 36.4 C L 95 H 16 115/76 97 08/29/21 10:15 36.4 C L 90 16 113/73 95 08/29/21 09:52 36.5 C 88 16 122/75 97 08/29/21 09:45 36.5 C 88 16 122/75 97 08/29/21 09:30 89 17 108/64 95 08/29/21 09:20 88 14 108/62 98 08/29/21 09:10 88 12 112/72 94 08/29/21 09:00 36.4 C L 92 H 15 108/65 98 08/29/21 08:50 95 H 13 103/60 96 08/29/21 08:40 96 H 20 102/66 98 08/29/21 08:30 103 H 19 113/57 L 97 08/29/21 08:23 36.2 C L 109 H 19 109/57 L 98 08/29/21 05:46 36.6 C 93 H 20 141/84 H 93 Transfer of Care Handoff Completed per policy Notes Mental Status: alert / awake / arousable Patient Amnestic to Procedure: Yes Nausea / Vomiting: adequately controlled Pain: adequately controlled Airway Patency, RR, SpO2: stable & adequate BP & HR: stable & adequate Hydration State: stable & adequate Neuraxial Anesthesia: was administered and sensory block is resolving Anesthetic Complications: no major complications apparent
[2021-08-29] MEDS: ACETAMINOPHEN 500 MG TAB PO SCH ×2 (13:05→21:06)
[2021-08-29] MEDS: INSULIN ASPART PER UNIT SQ SCH ×3 (13:06→21:05)
--- NOTE | 2021-08-29 14:10 | Pharmacy Report ---
Pharmacy Glycemic Short Note 2 - Date of Service August 29, 2021 - Glycemic Short BSG Results (Last 24 hours): 08/29/21 08/29/21 08/29/21 05:24 08:27 12:47 POC Glucose 160 H 164 H 260 H OUTPATIENT ANTIDIABETIC REGIMEN: * Jardiance 10 mg PO daily * Trulicity 3 mg weekly * HbA1C = 8.8% (08/06/21) ASSESSMENT: * Mr Henderson is a 70 y/o M with a PMH of T2DM who presents s/p L arthroplasty. * Preop BSGs were 160-164 mg/dL. BSG after patient ate lunch was 260 mg/dL (instructed nurse to cover only carbohydrates). * Will give Lantus 30 units SQ x 1 (half weight-based stress of 3) as loading dose then further doses to be determined tomorrow. * Novolog weight-based stress 2-3. PLAN FOR INPATIENT GLYCEMIC CONTROL: * Hold outpatient oral diabetes medications * Basal insulin * Lantus 30 units SQ x 1 with subsequent doses to be determined by BSGs * Bolus insulin * NovoLog per scale ACHS or Q6hrs while NPO * Goal Range: Low 110 mg/dL - High 140 mg/dL * Correction Factor: 18 mg/dL/unit * Nutritional / Prandial insulin per carb ratio of 1 unit per 6 grams CHO consumed
[2021-08-29] MEDS ORDERED: TRANEXAMIC ACID / 0.7% NACL 1,000 MG/100 ML BAG IV SCH (14:30)
[2021-08-29] MEDS ORDERED: INSULIN GLARGINE SOLOSTAR 100 UNITS/ML 3 ML PEN SC ONE (14:30)
[2021-08-29] MEDS: ASCORBIC ACID 500 MG TAB PO SCH (17:56)
[2021-08-29] MEDS ORDERED: SENNA 8.6 MG TAB PO SCH (21:00)
[2021-08-30] MEDS ORDERED: METOCLOPRAMIDE HCL INJ 5 MG/ML 2 ML VIAL IV PRN (01:01)
[2021-08-30] MEDS ORDERED: ONDANSETRON INJ 2 MG/ML 2 ML VIAL IV PRN (01:01)
[2021-08-30] MEDS ORDERED: HYDROmorphone INJ 0.5 MG/0.5 ML SYR IV PRN (01:01)
[2021-08-30] MEDS: traMADol HCL 50 MG TABLET PO PRN ×2 (01:11→09:42)
[2021-08-30] MEDS: ACETAMINOPHEN 500 MG TAB PO SCH ×2 (05:47→14:16)
[2021-08-30] MEDS: LEVOTHYROXINE SODIUM 150 MCG TABLET PO SCH (05:47)
[2021-08-30 07:29] LABS: Basophils # (auto) 0.03 K/uL (0-0.2); Basophils % (auto) 0.3 %; Hematocrit (blood only) 42.7 % (42-52); Hemoglobin 14.2 g/dL (14.0-18.0); Immature Granulocytes # (auto) 0.02 K/uL (0.00-0.02); Immature Granulocytes % (auto) 0.2 %; Lymphocytes % (auto) 12.5 %; Mean Corpuscular Hemoglobin 30.7 pg (25-34); Mean Corpuscular Hgb Conc 33.3 g/dL (32-36); Mean Corpuscular Volume 92.2 fL (80-100); Mean Platelet Volume 11.3 fL (7.4-10.4); Monocytes # (auto) 0.87 K/uL (0.11-0.59); Monocytes % (auto) 8.4 %; Neutrophils # (auto) 8.07 K/uL (1.4-6.5); Neutrophils % (auto) 77.6 %; Platelet Count 167 K/uL (130-400); RDW Coefficient of Variation 14.3 % (11.5-14.5); RDW Standard Deviation 48.4 fL (36.4-46.3); Red Blood Count 4.63 M/uL (4.7-6.1); White Blood Count 10.39 K/uL (4.8-10.8)
[2021-08-30] MEDS: DOCUSATE SODIUM 100 MG CAP PO SCH (08:09)
[2021-08-30] MEDS: ATORVASTATIN 20 MG TAB PO SCH (08:10)
[2021-08-30] MEDS: DOCUSATE SODIUM/SENNA 50/8.6MG TAB PO SCH (08:10)
[2021-08-30] MEDS: MULTIVITAMIN TAB PO SCH (08:11)
[2021-08-30] MEDS: TAMSULOSIN HCL 0.4 MG CAP PO SCH (08:11)
[2021-08-30] MEDS: TRIAMTERENE/HCTZ 37.5/25MG TAB PO SCH (08:12)
[2021-08-30 08:13] LABS: BUN Creatinine Ratio 14.1 (10-20); Calcium 8.6 mg/dl (8.5-10.1); Creatinine Clr Calc Pharmacy 50.9 ml/min; Est GFR (African American) 49.1 ml/min; Est GFR (Non-African American) 42.4 ml/min; Potassium 3.2 mmol/L (3.5-5.1)
[2021-08-30] MEDS: ASCORBIC ACID 500 MG TAB PO SCH (08:13)
[2021-08-30] MEDS: INSULIN ASPART PER UNIT SQ SCH ×2 (08:38→12:50)
[2021-08-30] MEDS ORDERED: RIVAROXABAN 10 MG TABLET PO SCH (09:00)
[2021-08-30] MEDS ORDERED: INSULIN GLARGINE SOLOSTAR 100 UNITS/ML 3 ML PEN SC ONE ×2 (09:30→21:00)
--- NOTE | 2021-08-30 18:34 | Progress Notes ---
DATE OF SERVICE: 08/30/2021. SUBJECTIVE: A 70-year-old gentleman, postoperative day 1 from a left hip replacement. He is doing w ell. Therapy went well. Moderate pain while ambulating. No pain at all really while resting in bed . No chest pain or shortness of breath. Not feeling dizzy or lightheaded. OBJECTIVE: VITAL SIGNS: Temperature is 36.9. Vital signs are stable. PHYSICAL EXAMINATION: GENERAL: Shows a pleasant middle-aged male. Lying in bed, looks pretty comfortable. EXTREMITIES: Examination of the left hip and leg reveals the dressing to be clean, dry and intact. Thigh is soft and supple. No drainage. Leg lengths are equal. He can dorsiflex and plantarflex his foot appropriately. LABORATORY DATA: Hemoglobin 14.2. Hematocrit 42.7. Electrolytes are stable. Potassium is slightly low at 3.2. Creatinine is stable. ASSESSMENT: A 70-year-old gentleman postoperative day 1 from a left hip replacement, doing pretty we ll. Pain is controlled. Hip is located. He is neurologically intact. PLAN: 1. DVT prophylaxis includes thigh-high TEDs, SCDs and we are going to put him on Xarelto for 30 days due to his history of DVT in the past. 2. PT, OT, weightbear as tolerated. Left total hip protocol. 3. Pain control, doing well with current pain regimen. 4. Disposition: Plan to discharge to home with some home health today. Job ID: [id number]
--- NOTE | 2021-09-04 14:37 | Discharge Summary ---
Date of Service September 04, 2021 Discharge Data Procedures Performed Operation Date: 08/29/21 07:00 Actual Procedures p Left Total Hip Arthroplasty--Uncemented(Left) - Willard Allen MD Hospital Course (1) S/P total left hip arthroplasty: This patient is a 70 year old male admitted on 08/29/21 and underwent total hip arthroplasty. He tolerated the procedure well and there were no complications. Transferred to the PACU post op and later to the orthopedic floor for further care. He was given ancef for antibiotic prophylaxis. He was also given ANA MARIA stockings, SCDs, and xarelto for DVT prophylaxis. Hemoglobin, hematocrit, and vital signs were monitored during his hospital stay and remained stable. Did not require any blood transfusions. There were no complications during his hospital stay. By post op day #1 the patient was tolerating a diabetic diet, pain was reasonably controlled with oral pain medicine, and he was participating in physical therapy. On post op day #1 the patient was discharged home and set up with home health care. He was given printed discharge instructions including prescriptions for extra strength tylenol, xarelto, zofran, flomax, and tramadol. Continue physical therapy, weight bearing as tolerated. Continue hip precautions. Continue ANA MARIA stockings. Follow up approximately 2 weeks post op or sooner if there are problems or concerns. Coding Level of Care Code None Diagnoses S/P total left hip arthroplasty Z96.642
== END 2021-08-30 16:28 | disposition home health service (06) ==
LOC: ASU 05:04 → 3W 05:04